=== PATIENT | female | born 1990 | race Caucasian/White ===

== ENCOUNTER 2016-10-25 09:13 | Observation (INO) | payer BC ==
[2016-10-25] MEDS ORDERED: MIDAZOLAM 2 MG/2 ML VIAL IVP ONE (09:21)
[2016-10-25] MEDS ORDERED: NS 1,000 ML IV ONE (09:21)
--- NOTE | 2016-10-25 09:45 | CPEKG ---
Heart Rate: 59 RR Interval: 1017 P-R Interval: 152 QRSD Interval: 90 QT Interval: 428 QTC Interval: 424 P [place]: 46 QRS [place]: 85 T Wave [place]: 52 EKG Severity - OTHERWISE NORMAL ECG - EKG Impression: SINUS RHYTHM EKG Impression: ATRIAL PREMATURE COMPLEX Electronically Signed By: Flavio Armstrong 25-Oct-2016 11:23:31
[2016-10-25 10:02] LABS: % IMMATURE GRANULYOCYTES 0.3 % (0.0-1.1); ABSOLUTE IMMATURE GRANULOCYTES 0.02 10^3/uL (0.00-0.10); ADD DIFF? NO; ADD MORPH? NO; ADD SCAN? NO; ATYPICAL LYMPHOCYTE FLAG 10 (0-99); FRAGMENT RBC FLAG 0 (0-99); HEMATOCRIT 40.2 % (38.0-47.0); HEMOGLOBIN 14.2 g/dL (12.6-16.3); LEFT SHIFT FLG 10 (0-99); LIPEMIA HEMOLYSIS FLAG 90 (0-99); MEAN CELL HEMOGLOBIN 33.6 pg (27.9-34.1); MEAN CELL HEMOGLOBIN CONCENTR. 35.3 g/dL (32.4-36.7); MEAN PLATELET VOLUME 11.6 fL (8.7-11.7); PLATELET CLUMPS FLAG 0 (0-99); PLATELET COUNT 200 10^3/uL (150-400); RED BLOOD CELL COUNT 4.23 10^6/uL (4.18-5.33); RED CELL DISTRIBUTION WIDTH 11.9 % (11.5-15.2)
[2016-10-25 10:18] LABS: INR 1.04 (0.83-1.16); PROTIME(PATIENT) 13.5 SEC (12.0-15.0)
[2016-10-25 10:19] LABS: ANION GAP 15 mEq/L (8-16); APTT 33.7 SEC (23.0-38.0); CALCIUM 9.8 mg/dL (8.5-10.4); CARBON DIOXIDE 19 mEq/l (22-31); CHLORIDE 109 mEq/L (97-110); CREATININE 0.7 mg/dL (0.6-1.0); GLOMERULAR FILTRATION RATE > 60; GLUCOSE 89 mg/dL (70-100); MAGNESIUM 1.9 mg/dL (1.6-2.3); POTASSIUM 4.3 mEq/L (3.5-5.2); SODIUM 143 mEq/L (134-144)
[2016-10-25] MEDS ORDERED: BUPIVACAINE 0.5% 30 ML SDV ONE (10:42)
[2016-10-25] MEDS ORDERED: HEPARIN 10,000 UNIT/10 ML MDV ONE (10:42)
[2016-10-25] MEDS ORDERED: LIDOCAINE 1% 300 MG/30 ML SDV ONE (10:42)
[2016-10-25] MEDS ORDERED: ONDANSETRON 4 MG/2 ML VIAL ONE (11:01)
[2016-10-25] MEDS ORDERED: ROCURONIUM 50 MG/5 ML VIAL ONE ×2 (11:01→14:44)
[2016-10-25] MEDS ORDERED: DEXAMETHASONE 4 MG/ML VIAL ONE (11:01)
[2016-10-25] MEDS ORDERED: KETOROLAC 30 MG/1 ML SDV ONE (11:01)
[2016-10-25] MEDS ORDERED: fentaNYL 100 MCG/2 ML INJ ONE (11:02)
[2016-10-25] MEDS ORDERED: PROPOFOL 200 MG/20 ML VIAL ONE (11:02)
[2016-10-25] MEDS ORDERED: ISOPROTERENOL HCL 0.2 MG/ML 5ML AMP ONE (11:27)
[2016-10-25] MEDS ORDERED: ISOPROTERENOL HCL/D5W 0.2 MG/50 ML BAG IV ONE (11:34)
[2016-10-25] MEDS ORDERED: HEPARIN/DEXTROSE 25,000 UNIT/500 ML BAG ONE (12:00)
[2016-10-25] MEDS ORDERED: PHENYLEPHRINE HCL 100 MCG/ML SYR ONE (12:46)
[2016-10-25] MEDS ORDERED: ATROPINE SULFATE 1 MG/10 ML SYR ONE (13:03)
[2016-10-25] MEDS ORDERED: PHENYLEPHRINE 10 MG/ML SDV ONE ×2 (15:06)
[2016-10-25] MEDS ORDERED: SUGAMMADEX SODIUM 200 MG/2 ML VIAL IVP ONE (16:18)
[2016-10-25] MEDS ORDERED: ONDANSETRON 4 MG/2 ML VIAL IVP PRN (16:24)
[2016-10-25] MEDS ORDERED: ACETAMINOPHEN 325 MG TAB PO PRN (16:24)
[2016-10-25] MEDS ORDERED: CETIRIZINE 10 MG TAB PO PRN (16:25)
[2016-10-25] MEDS ORDERED: ETONOGESTREL VG SCH (16:30)
[2016-10-25] MEDS ORDERED: ETHINYL ESTRADIOL VG SCH (16:30)
--- NOTE | 2016-10-25 17:53 | CPEKG ---
Heart Rate: 63 RR Interval: 952 P-R Interval: 132 QRSD Interval: 86 QT Interval: 420 QTC Interval: 430 P [place]: 35 QRS [place]: 88 T Wave [place]: 65 EKG Severity - NORMAL ECG - EKG Impression: SINUS RHYTHM Electronically Signed By: Flavio Armstrong 26-Oct-2016 10:04:23
[2016-10-25 18:12] LABS: ANION GAP 10 mEq/L (8-16); CALCIUM 8.7 mg/dL (8.5-10.4); CARBON DIOXIDE 20 mEq/l (22-31); CHLORIDE 114 mEq/L (97-110); CREATININE 0.8 mg/dL (0.6-1.0); GLOMERULAR FILTRATION RATE > 60; GLUCOSE 105 mg/dL (70-100); MAGNESIUM 1.7 mg/dL (1.6-2.3); POTASSIUM 4.2 mEq/L (3.5-5.2); SODIUM 144 mEq/L (134-144)
[2016-10-25] MEDS ORDERED: APIXABAN 2.5 MG TAB PO SCH (21:00)
[2016-10-26] MEDS: APIXABAN 5 MG TAB PO SCH ×2 (01:20→09:27)
[2016-10-26 05:07] LABS: % IMMATURE GRANULYOCYTES 0.3 % (0.0-1.1); ABSOLUTE IMMATURE GRANULOCYTES 0.02 10^3/uL (0.00-0.10); ADD DIFF? NO; ADD MORPH? NO; ADD SCAN? NO; ATYPICAL LYMPHOCYTE FLAG 0 (0-99); FRAGMENT RBC FLAG 0 (0-99); HEMATOCRIT 33.4 % (38.0-47.0); HEMOGLOBIN 11.4 g/dL (12.6-16.3); LEFT SHIFT FLG 0 (0-99); LIPEMIA HEMOLYSIS FLAG 90 (0-99); MEAN CELL HEMOGLOBIN 32.9 pg (27.9-34.1); MEAN CELL HEMOGLOBIN CONCENTR. 34.1 g/dL (32.4-36.7); MEAN CELL VOLUME 96.3 fL (81.5-99.8); MEAN PLATELET VOLUME 12.1 fL (8.7-11.7); PLATELET CLUMPS FLAG 0 (0-99); PLATELET COUNT 158 10^3/uL (150-400); RED BLOOD CELL COUNT 3.47 10^6/uL (4.18-5.33); RED CELL DISTRIBUTION WIDTH 12.1 % (11.5-15.2)
[2016-10-26 05:19] LABS: INR 1.25 (0.83-1.16); PROTIME(PATIENT) 15.7 SEC (12.0-15.0)
[2016-10-26 05:21] LABS: ANION GAP 10 mEq/L (8-16); CALCIUM 8.5 mg/dL (8.5-10.4); CARBON DIOXIDE 20 mEq/l (22-31); CHLORIDE 110 mEq/L (97-110); CREATININE 0.6 mg/dL (0.6-1.0); GLOMERULAR FILTRATION RATE > 60; GLUCOSE 87 mg/dL (70-100); POTASSIUM 3.9 mEq/L (3.5-5.2); SODIUM 140 mEq/L (134-144)
[2016-10-26 05:32] LABS: CREATINE KINASE-MB FRACTION 1.42 ng/mL (0-3.19); TROPONIN I 0.349 ng/mL (0-0.034)
[2016-10-26 07:28] VITALS: BP 100/53; PULSE 70; RESP 11; TEMP 98.7; O2SAT 96
--- NOTE | 2016-10-26 08:49 | CPEKG ---
Heart Rate: 61 RR Interval: 984 P-R Interval: 144 QRSD Interval: 90 QT Interval: 412 QTC Interval: 415 P [place]: 59 QRS [place]: 84 T Wave [place]: 53 EKG Severity - NORMAL ECG - EKG Impression: SINUS RHYTHM Electronically Signed By: Flavio Armstrong 26-Oct-2016 10:04:17
[2016-10-26] MEDS ORDERED: ASPIRIN 325 MG TAB PO SCH (09:00)
--- NOTE | 2016-10-26 09:56 | ECHO ---
[id number] + + [address] : : [place] [address] : : [phone] + + Adult Echocardiographic Report + -----+ :Name: GLADYS STOKES NStudy Date: 10/26/2016 07:27 AM : : Hospital Admission Number: [id number] Location : 203: :: 1990 Gender: Female Height: 65 in : :Age: 25 yrs Race: WH Weight: 113 lb : :Reason For Study: F/U post EP study : : BSA: 1.6 meters2 : + -----+ MMode/2D Measurements \T\ Calculations IVSd: 0.49 cm LVIDd: 4.5 cm FS: 38.3 % Ao root diam: LVPWd: 0.63 cm LVIDs: 2.8 cm EDV(Teich): 2.7 cm 92.3 ml LA dimension: ESV(Teich): 2.5 cm 28.9 ml EF(Teich): 68.7 % LVLd ap4: 7.2 cm SV(MOD-sp4): EDV(MOD-sp4): 30.0 ml 42.0 ml LVLs ap4: 5.7 cm ESV(MOD-sp4): 12.0 ml EF(MOD-sp4): 71.4 % Normal Measurement Values: + + :LVIDd (3.5-5.7cm) IVSd (0.6-1.1cm) LVPWd (0.6-1.1cm) Aortic Root (2.0-3.7cm)Left Atrium (1.5-4.0cm): :LV Vol(d) (76-115ml) LV Vol(s) (29-48ml) Ejec Fraction (50-65%)PV Akin (0.6- 1.2m/s) TV Akin (0.4-1.0m/s) : :MV E Akin (0.8-1.0m/s)MV A Akin (0.3-1.0m/s)LVOT Akin (0.7-1.2m/s) Asc Ao Akin ( 0.9-1.8m/s) : + + Doppler Measurements \T\ Calculations MV E max akin: 115.0 cm/sec Ao V2 max: 108.6 cm/sec MV A max akin: 49.9 cm/sec Ao max P.7 mmHg MV E/A: 2.3 Left Ventricle The left ventricle is normal in size. There is normal left ventricular wall thickness. Left ventricular systolic function is normal. Ejection Fraction = 65-70%. No regional wall motion abnormalities noted. Right Ventricle The right ventricle is normal in size and function. Atria The left atrial size is normal. Right atrial size is normal. The interatrial septum is intact with no evidence for an atrial septal defect. Mitral Valve The mitral valve is normal in structure and function. There is no evidence of mitral valve prolapse. There is no mitral valve stenosis. There is trace mitral regurgitation. Tricuspid Valve Normal tricuspid valve. There is trace tricuspid regurgitation. Aortic Valve The aortic valve is trileaflet. The aortic valve opens well. There is no aortic stenosis. There is no aortic insufficiency. Pulmonic Valve The pulmonic valve is normal in structure and function. There is no pulmonic valvular regurgitation. Great Vessels The aortic root is normal size. Pericardium/Pleural There is no pericardial effusion. Conclusion A complete two-dimensional transthoracic echocardiogram was performed (2D, M-mode, Doppler and color flow Doppler). Left ventricular systolic function is normal. Ejection Fraction = 65-70%. There is trace mitral regurgitation. There is trace tricuspid regurgitation. There is no pericardial effusion. Final Reading Physician: Merrill Goff signed on 10/26/2016 09:55 AM Ordering Physician: Valdo Botello Performed By: Yaneth Lam, COOPERCS
--- NOTE | 2016-10-26 19:58 | EPPROC ---
Electrophysiology Procedure Note: ELECTROPHYSIOLOGIC STUDY AND CATHETER MEDIATED ABLATION OF ACCESSORY PATHWAY Procedures performed: 15010-69 EP evaluation with RA/RV/LA pace/record, with arrhythmia induction 40067-48 EP evaluation with RA/RV pace record, insert/reposition catheter, with arrhythmia induction 13412 Intracardiac catheter ablation, SVT arrhythmogenic focus 36781 3D mapping Fluoroscopy 23257 Intracardiac echocardiogram 48344-65 Transseptal puncture INDICATION: This is a 25 yr old female with history of palpitations and anxiety. She was having short episodes of these events and they had been increasing in frequency. Recently she had monitor placed which showed the episodes to be SVT where she was in rapid rate at 190bpm and then dropped to 160bpm for a while and then terminated. In view of this it was decided to perform EP study with possibility of RF ablation. PROCEDURE: Catheters and anesthesia: The patient arrived in the Electrophysiology Laboratory in the fasting state. The right clavicular region, right groin, and left groin area were prepped and draped in the usual sterile manner. Anesthesiologist administered general anesthesia. Appropriate non-invasive blood pressure, pulse oximetry and end- tidal CO2 monitoring was established. All catheters were placed percutaneously using the modified Seldinger technique , and advanced into position under fluoroscopic guidance. One CRD2 catheter was placed in the His position via the RFV. One #6 Malay deflectable catheter with 10 pairs of electrodes was placed via the right femoral vein into the coronary sinus. Programmed stimulation of the right atrium, right ventricle and coronary sinus ( left atrium) was performed. Parahisian pacing demonstrated that with Vpacing there was retrograde conduction with earliest atrial signal in the CS distal position. Hence the left accessory pathway was noted. With atrial burst pacing, SVT was induced at 360ms with narrow complex tachycardia and retrograde conduction over the AP. Entrainment was performed and it was ntoed that the VAV - TCL was 80ms. The retrograde conduction was eccentric. The CS catheter was pushed further and now the left accessory pathway was bracketed with earliest signal in the CS 2 position which was located in the 3 o'clock position in the vertically positioned heart. It was anterolaterally located. The BP dropped to 68/40mm Hg during SVT. Svt was terminated with rapid V pacing. In preparation for ablation of the left accessory pathway a transeptal puncture was performed under fluoroscopic and hemodynamic guidance. Intracardiac echocardiography was used during the procedure. Mean left atrial pressure was 8 mm Hg mmHg. A SL1 sheath was inserted into the left atrium. The patient was administered IV heparin bolus and IV heparin continuous infusion prior to the transseptal puncture and the activated clotting time was maintained ~ 300 seconds during the remainder of the procedure. One #7 Malay mapping catheter with a 4 mm tip electrode and a sensory for the [id number] mapping system was inserted into the SL1 sheath and advanced to the left atrium. Mapping was performed during V pacing. Earliest atrial signal was noted. RF lesions were delivered at this site at 20 W and then at 25 W. After 5-10 sec, the pathway conduction would terminate but would return once the ablation was terminated at 60 or 120 sec. To achieve better stability, SL1 was exchanged for Agilis sheath and ablation was now performed. As soon as good stability was achieved, with 25 W, pathway conduction terminated and did not return. The pt was given two more lesion in the surrounding area and then was observed for 45 min. No return of pathway conduction was noted. Programmed stimulation from the RA, CS, during the baseline state post ablation and during infusion of isoproterenol 2 and 4 mcg/min confirmed that there was no conduction over the left anterolateral accessory pathway and no orthodromic AVRT could be induced. However, dual AV sridhar physiology was noted and then SVT was induced. Now the conduction was concentric and VA time during SVT was -5ms. VAV -TCL could not be performed since entrainment was difficult. At time VA dissociation was noted.Echo and jump were documented. Mapping of the right atrium and coronary sinus during AVNRT identified earliest atrial activation above the tendon of Wil at a level slightly posterior to the level of the His bundle, consistent with retrograde conduction over the fast AV sridhar pathway. There were times when the TCL changed from 190bpm to 140bpm with similar conduction pattern, thereby indicative of two slow pathways and that the SVT was indeed AVNRT. 3 D mapping of the inter-atrial septum and coronary sinus was performed and location of the AV node was marked. RF applications were delivered to the region between the tricuspid annulus and the coronary sinus ostium, at the level of the upper edge of the coronary sinus ostium. Radiofrequency applications were also delivered along the roof of the proximal coronary sinus. Junctional rhythm occurred during many of the RF applications. Programmed stimulation was continued post ablation at baseline and during graded doses of isoproterenol upto 1mcg/min. Sustained AVNRT was not inducible. There were 0 echo beats. Dual AV sridhar physiology was no longer present The catheters were removed. The long sheath was changed to a short 9 Fr sheath. The patient was transferred to the cardiovascular holding area in stable condition. Vascular access sheaths were removed in the holding area. There were no apparent complications. The catheters were removed. Long sheath was exchanged for short sheath. Protamine was administered. The patient was transferred to the cardiovascular holding area in stable condition. Vascular access sheaths were removed in the holding area. There were no apparent complications. Results: Accessory pathway function 1. A single AV accessory pathway was identified at the MV annulus at 3 o clock as seen in the KYRGYZ view. 2. The AV accessory pathway conducted in the retrograde directions. 1. 2 premature beats induced orthodromic AV reentrant tachycardia using the left accessory AV pathway. Tachycardia cycle length: 365 ms AH interval 160 ms HV interval 55ms 3. Successful ablation of the left accessory pathway using transeptal approach 4. Dual AV sridhar physiology noted. 5. Echo and sustained AVNRT at 190bpm and 140bpm. noted. 6. Extensive ablation of the slow pathway performed. 7. No induction of SVT or echo after the ablation of the slow pathway CONCLUSIONS: 1. A single left accessory pathway, which exhibited conduction in the retrograde direction. 2. 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 3. Successful ablation of the left anterolateral accessory pathway with elimination of AV reentrant tachycardia. AV sridhar reentrant tachycardia using the slow AV sridhar pathway for antegrade conduction and the fast AV sridhar pathway for retrograde conduction. ( Slow/fast AVNRT). 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 Successful ablation of the slow AV sridhar pathway with elimination of 1:1 antegrade conduction over the slow AV sridhar pathway, all retrograde conduction over the slow AV sridhar pathway and the inducibility of AVNRT. 4. No apparent complications.
--- NOTE | 2016-10-26 21:41 | GDS ---
[f rep st] DISCHARGE SUMMARY ADMISSION DIAGNOSES: 1. Supraventricular tachycardia. 2. Lightheadedness. 3. Presyncopal events. DISCHARGE DIAGNOSES: 1. Supraventricular tachycardia. 2. 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 PROCEDURES PERFORMED DURING HOSPITALIZATION: 1. Electrocardiogram. 2. Electrophysiology study. 3. AVNRT ablation on left side, AVRT on right side ablation. 4. Echocardiogram. BRIEF HISTORY: Please see H and P: The patient is a 25-year-old female, who has a number years of palpitations. By monitoring, she has been found to have NSVT, which shows rates up to 190 BPM. The se were associated with lightheadedness and presyncopal events. She was sent by her primary cardiol ogist, Dr. Spivey, to be evaluated by Dr. Botello, who felt that she was an appropriate candidate to unde rgo electrophysiology study and, if necessary, ablation. HOSPITAL COURSE: Patient was admitted through CVC, taken to the cardiac catheterization. 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 No complications, patient was taken back to the CVC and ultimately to the PCU overnight. There she has remained in sinus rhythm with no malignant arrhythmias or pauses noted on continuous cardiac monitoring. She did report mild chest discomfort postprocedure, which h as improved. No shortness of breath, orthopnea, PND, lightheadedness. PHYSICAL EXAMINATION: Done today. GENERAL APPEARANCE: Thin, well-groomed, female. She is alert and oriented to person, place, time, situation. Appears to be in no acute distress. CURRE NT VITAL SIGNS: Blood pressure of 100/50, heart rate of 70 sinus rhythm on the monitor. Respiratio ns 12. Saturating 96% on room air. Temperature 37.1 degrees Celsius. HEENT: Head is normocephali c. Lips and tongue are pink and moist with no signs of cyanosis. Conjunctivae pink. NECK: Trache a is midline, +2 carotid pulses bilateral. No auscultated bruits, no jugular vein distention. RESP IRATORY: Lungs clear to auscultation, no rhonchi, rales or wheezes. No accessory muscle use, no in tercostal muscle retraction noted. CARDIAC: Regular rate, regular rhythm, S1, S2, no S3, S4, herndon ps, rubs or murmur noted. ABDOMEN: Soft, nontender, bowel sounds x4 quadrants. No organomegaly. No palpable masses. SKIN: [place], warm, dry, no cyanosis, no clubbing, no peripheral edema. VASCULA R: +2 carotids bilateral, +2 radials bilateral, +2 dorsal pedal and posterior tibial pulses bilater al. Catheter insertion site, bilateral groin sites, with no redness, swelling, ecchymosis, hematoma, or bleeding noted. No auscultated bruit over either site. LABORATORY STUDIES: Drawn today show WBC of 7.47, hemoglobin 11.4, hematocrit 33.4, platelet count 158. INR 1.25. Sodium 140, potassium 3.9, chloride 110, CO2 20, BUN 8, creatinine 0.6, glucose 87, calcium 8.5, magnesium post procedure was 1.7. CK today was 77. CK-MB was 1.42. Troponin was 0.3 49 noted. Expected to have elevated cardiac enzymes post ablation. Of note, patient preprocedure d id undergo test, which was negative. STUDIES: Electrophysiology and ablation procedures as mentioned above, the patient's electrocardiog anca today showed sinus rhythm, normal axis, no significant ST or T-wave abnormalities. An echocardi ogram done this morning, 1 day postprocedure, showing normal LV systolic function. EF 65% to 70%. Trace MR, trace TR, no pericardial effusion. DISCHARGE DISPOSITION: Patient will be discharged home in stable condition. She is under activity restrictions of not lifting more than 10 pounds for next week and no strenuous activity for the next 2 weeks. DISCHARGE MEDICATIONS: Please see discharge medication reconciliation sheet. Note, that due to the ablation on the left, she will need to be on full anticoagulation of Eliquis for the next [address] Botello. A prescription has been written. She has been given a 30-day free card and a co-pay card from the [employer] person. DISCHARGE INSTRUCTIONS: Post supraventricular tachycardia ablation discharge instructions went over with the patient and her mother, including monitoring for signs of infection, activity restrictions , medication compliancy, deep vein thrombosis precautions, and bleeding precautions. At the time of discharge, patient and her mother understand all instructions and have no questions. They have bee n told that if any problems or concerns post discharge, they are to call our office or return to the hospital immediately. The patient has a scheduled followup appointment set with Dr. Botello. Total time spent on discharge greater than 30 minutes. /[id number]/MODL
== END 2016-10-26 11:27 | disposition home or self-care (01) ==
LOC: FSGY 09:13 → F2W 16:54
PROVIDERS: ADMIT Internal Medicine Cardiovascular Disease; ATTEND Internal Medicine Cardiovascular Disease
PROC: B245ZZZ Ultrasonography of Left Heart (ICD-10-PCS; principal; 2016-10-25)
PROC: 4A0234Z Measurement of Cardiac Electrical Activity, Percutaneous Approach (ICD-10-PCS; principal; 2016-10-25)
PROC: 3E033KZ Introduction of Other Diagnostic Substance into Peripheral Vein, Percutaneous Approach (ICD-10-PCS; principal; 2016-10-25)
PROC: 02583ZZ Destruction of Conduction Mechanism, Percutaneous Approach (ICD-10-PCS; principal; 2016-10-25)
PROC: 02K83ZZ Map Conduction Mechanism, Percutaneous Approach (ICD-10-PCS; principal; 2016-10-25)
DX: I47.1 Supraventricular tachycardia (principal); R55 Syncope and collapse
CPT/HCPCS: 93005; 93306; 93621; 93623; 93653; 93655; 93662; C1732; C1766; G0378; C1730; C1759; C1893; J0461; J1100; J1644; J1885; J2250; J2370; J2405; J2704; J3010